=== PATIENT | female | born 1990 | race Caucasian/White ===

== ENCOUNTER → 2016-05-03 | Outpatient (CLI) | payer BC, OTHER ==
[~2016-05-03] MED LIST: IBUP-1427 PO; PRENTAB26 PO
[2016-05-03 15:02] LABS: URINE APPEARANCE CLEAR (CLEAR); URINE BILIRUBIN NEG (NEG); URINE COLOR DK YELLOW; URINE EPITHELIAL CELL AUTO >30 /lpf (0-5); URINE NITRITE NEG (NEG); URINE PH 5.5 (4.5-7.5); URINE SPECIFIC GRAVITY 1.028 (1.000-1.030); UROBILINOGEN NEG (NEG)
[2016-05-03 15:09] LABS: MANUAL MICROSCOPIC REQUIRED? NO; REVIEW REQ? NO
== END | disposition home or self-care (01) ==
LOC: C.LABSPEC 13:51
PROVIDERS: ATTEND Obstetrics & Gynecology
DX: Z34.83 Encounter for supervision of other normal pregnancy, third trimester (principal)

== ENCOUNTER → 2016-05-03 | Outpatient (CLI) | payer BC, OTHER ==
[2016-05-03 12:22] LABS: HEMATOCRIT 33.3 % (37-47)
[2016-05-03 13:55] LABS: GTGD 50 Grams
== END | disposition home or self-care (01) ==
LOC: C.LAB1850 10:17
PROVIDERS: ATTEND Obstetrics & Gynecology
DX: Z34.83 Encounter for supervision of other normal pregnancy, third trimester (principal)

== ENCOUNTER → 2016-07-04 | Outpatient (CLI) | payer BC | END | disposition home or self-care (01) | LOC: C.LABSPEC 13:26 | PROVIDERS: ATTEND Obstetrics & Gynecology | DX: Z34.83 Encounter for supervision of other normal pregnancy, third trimester (principal) ==

== ENCOUNTER 2016-08-02 11:47 | Outpatient (CLI) | payer BC | END 2016-08-02 13:22 | disposition home or self-care (01) | LOC: C.LD 11:47 → C.OPB 11:47 | PROVIDERS: ATTEND Obstetrics & Gynecology | DX: O26.893 Other specified pregnancy related conditions, third trimester (principal); O48.0 Post-term pregnancy; Z3A.41 41 weeks gestation of pregnancy ==

== ENCOUNTER 2016-08-04 09:27 | Inpatient (IN) | payer BC ==
[~2016-08-04] VITALS: Ht 172.7 cm; Wt 85.0 kg
[2016-08-04 15:51] VITALS: Ht 172.7 cm; Wt 85.0 kg
[2016-08-04 16:14] LABS: HEMATOCRIT 36.3 % (37-47); MEAN CELL VOLUME 92.8 fL (80-100); MEAN CORPUSCULAR HEMOGLOBIN 31.7 pg (25-34); MEAN CORPUSCULAR HGB CONC 34.2 g/dl (32-36); MEAN PLATELET VOLUME 9.9 fL (7.4-10.4); PLATELET COUNT 197 K/uL (130-400); RED BLOOD COUNT 3.91 M/uL (4.2-5.4); WHITE BLOOD COUNT 8.51 K/uL (4.8-10.8)
[2016-08-05] MEDS ORDERED: OXYTOCIN 30 UNITS/500ML NSS IV PRN ×2 (07:15→14:30)
[2016-08-05] MEDS: LACTATED RINGER'S 1000ML 500 ML IV PRN ×3 (07:43→13:26)
[2016-08-05] MEDS ORDERED: BUPIVACAINE 0.25% 30 ML VIAL ONE (08:17)
[2016-08-05] MEDS ORDERED: FENTANYL CITRATE INJ 50 MCG/1 ML 2 ML VIAL ONE (08:17)
[2016-08-05] MEDS ORDERED: FENTANYL 2MCG/ML ROPIV 1.25MG/ML 100ML BAG EPI ONE (08:17)
[2016-08-05] MEDS ORDERED: EpHEDrine SULFATE INJ 50 MG/ML AMP ONE (08:17)
[2016-08-05] MEDS ORDERED: LACTATED RINGER'S 1000ML 500 ML IV PRN (09:46)
[2016-08-05] MEDS ORDERED: NALOXONE HCL INJ 1 MG in SODIUM CHLORIDE 0.9% 1000ML 1,000 ML IV PRN (09:46)
[2016-08-05] MEDS ORDERED: NALBUPHINE HCL INJ 10 MG/ML AMP IV PRN (10:00)
[2016-08-05] MEDS ORDERED: NALOXONE HCL INJ 0.4 MG/1 ML VIAL/CARP IV PRN (10:00)
[2016-08-05] MEDS ORDERED: EpHEDrine SULFATE INJ 50 MG/ML AMP IV PRN (10:00)
[2016-08-05] MEDS ORDERED: FENTANYL 2MCG/ML ROPIV 1.25MG/ML 100ML BAG EPI PRN (10:00)
[2016-08-05] MEDS ORDERED: DiphenhydrAMINE HCL 50 MG/ML VIAL IV PRN (10:00)
[2016-08-05] MEDS ORDERED: HYDROCORTISONE ACETATE 25 MG SUPP PR PRN (14:30)
[2016-08-05] MEDS ORDERED: ACETAMINOPHEN/CODEINE 300/30MG TAB PO PRN ×2 (14:30)
[2016-08-05] MEDS ORDERED: OXYCODONE/ACETAMINOPHEN 5-325 TAB PO PRN (14:30)
[2016-08-05] MEDS ORDERED: SUPERCREAM 0.870 % 15GM JAR EXT PRN (14:30)
[2016-08-05] MEDS ORDERED: DIPHTHERIA/TETANUS/PERTUSSIS 0.5 ML SYR/VIAL IM. ONE (14:30)
[2016-08-05] MEDS ORDERED: LANOLIN OINT EXT PRN ×2 (14:30)
[2016-08-05] MEDS ORDERED: BENZOCAINE 20% AER SPR 82.5 GM CAN EXT PRN (14:30)
[2016-08-05] MEDS ORDERED: ACETAMINOPHEN 325 MG TAB PO PRN (14:30)
--- NOTE | 2016-08-05 15:53 | Anesthesia Procedure Note ---
Anesthesia Epidural Removal Nt Date & Time Aug 05, 2016 at 15:52 Vital Signs Pain Intensity: 0.0 Notes Mental Status: alert / awake / arousable, participated in evaluation Nausea / Vomiting: adequately controlled Pain: adequately controlled Airway Patency, RR, SpO2: stable & adequate BP & HR: stable & adequate Hydration State: stable & adequate Neuraxial Anesthesia: was administered, sensory block is resolving Anesthetic Complications: no major complications apparent, pt satisfied with anesthetic care Epidural: removed without complications, with tip intact
[2016-08-05 17:15] VITALS: BP 118/73; PULSE 74; TEMP 36.9; O2SAT 97
[2016-08-05] MEDS: IBUPROFEN 600 MG TAB PO PRN ×2 (17:48→22:45)
[2016-08-05 19:30] VITALS: BP 123/71; PULSE 62; TEMP 36.5
[2016-08-05] MEDS: DOCUSATE SODIUM 100 MG CAP PO SCH (20:33)
[2016-08-06 00:10] VITALS: BP 114/68; PULSE 54; TEMP 36.4; O2SAT 97
[2016-08-06] MEDS: IBUPROFEN 600 MG TAB PO PRN ×4 (02:59→17:00)
[2016-08-06 04:30] VITALS: BP 108/67; PULSE 62; TEMP 36.5
[2016-08-06 06:58] LABS: HEMATOCRIT 32.4 % (37-47)
[2016-08-06] MEDS ORDERED: PRENATAL VITAMIN TAB PO SCH (08:00)
--- NOTE | 2016-08-06 08:40 | Progress Note ---
Subjective Aug 06, 2016. Subjective conversation w/ patient, physical exam Ambulation: ambulating normally Voiding: no voiding problems Passing Gas: Yes Diet Tolerance: Regular Diet Lochia: Moderate Feeding Type: Bottle Feeding Pain: 2/10 improves with pain medication Comment: Patient was seen at the bedside. No acute event overnight. Review of Systems Constitutional: No fever Respiratory: No cough, No shortness of breath Cardiac: No chest pain, No edema Breast: No breast lump Abdomen: No nausea, No pain, No vomiting Female : No dysuria Denies headache Objective Vital Signs Date Time Temp Pulse Resp B/P Pulse Ox O2 Delivery O2 Flow Rate FiO2 08/06/16 04:30 36.5 62 20 108/67 Room Air 08/06/16 00:10 36.4 54 18 114/68 Room Air 08/06/16 00:10 97 Room Air 08/05/16 19:30 36.5 62 20 123/71 Room Air 08/05/16 17:15 36.9 74 16 118/73 97 Room Air Physical Exam General Appearance: WELL-APPEARING, WD/WN Respiratory/Chest: chest non-tender, lungs clear, normal breath sounds Cardiovascular: regular rate, rhythm Abdomen: normal bowel sounds, non tender, soft Fundus: Firm, Relation to Umbilicus (2cm beloe) Extremities: non-tender, no pedal edema, no calf tenderness Laboratory Results Last 24 Hours Test 08/06/16 06:20 Hemoglobin 10.8 g/dL Hematocrit 32.4 % Medications Current Inpatient Medications Medications (Trade) Dose Ordered Sig/Jhonatan Route Start Time Stop Time Status Last Admin Dose Admin Oxytocin (Pitocin IV) 30 units UD PRN IV 08/05/16 14:30 09/04/16 14:29 Benzocaine (Dermoplast Aero Spr) 1 appln PRN PRN EXT 08/05/16 14:30 09/04/16 14:29 Cocaine HCl (Supercream 0.870% Cr) BID PRN EXT 08/05/16 14:30 08/19/16 14:29 Hydrocortisone Acetate (Anusol Hc Supp) 25 mg BID PRN [place] 08/05/16 14:30 09/04/16 14:29 Lanolin (Lanolin Oint) PRN PRN EXT 08/05/16 14:30 09/04/16 14:29 Prenat Multivit/ [place]/Iron/Folic Ac ( Vitamin Tab) 1 tab DAILY PO 08/06/16 08:00 09/05/16 07:59 Ibuprofen (Motrin Tab) 600 mg Q4H PRN PO 08/05/16 14:30 09/04/16 14:29 08/06/16 02:59 600 MG Acetaminophen (Tylenol Tab) 650 mg Q6H PRN PO 08/05/16 14:30 09/04/16 14:29 Acetaminophen/ Codeine Phosphate (Tylenol w/ Codeine #3 Tab) 1 tab Q4H PRN PO 08/05/16 14:30 09/04/16 14:29 Acetaminophen/ Codeine Phosphate (Tylenol w/ Codeine #3 Tab) 2 tab Q4H PRN PO 08/05/16 14:30 09/04/16 14:29 Docusate Sodium (coLACE CAP) 100 mg BID PO 08/05/16 20:00 09/04/16 19:59 08/05/16 20:33 100 MG Assessment and Plan Post- Day#: 1 Continue Routine Care: A/P: This is a 25 y/o female, , s/p normal vaginal delivery. She is ambulating and clinically stable. Plan: - Vitals signs are reviewed and WNL (Tmax 36.9 ) - Last Hgb is 10.8 - Blood type A+, GBS neg, Rubella Immune - Routine care - Encourage ambulation, monitor and control pain with medication as needed , continue with regular diet as tolerated and monitor lochia - Stool softeners and sitz bath recommended
[2016-08-06] MEDS: DOCUSATE SODIUM 100 MG CAP PO SCH (08:46)
[2016-08-06 08:50] VITALS: BP 108/64; PULSE 62; TEMP 36.4; O2SAT 97
[2016-08-06 12:30] VITALS: BP 111/61; PULSE 58; TEMP 36.5; O2SAT 99
[2016-08-06 15:30] VITALS: BP 104/64; PULSE 44; TEMP 36.4
--- NOTE | 2016-08-06 16:35 | Discharge Instructions ---
Discharge Instructions Date of Service Aug 06, 2016. Admission Reason for Admission: Induction Discharge Discharge Diagnosis / Problem: s/p vaginal delivery Discharge Goals Goal(s): Routine recovery after delivery Medications Continue Dispensed Medications: supercream, dermaplast, tucks, lansinoh Activity Recommendations Activity Limitations: per Instructions/Follow-up section . Instructions / Follow-Up Instructions / Follow-Up ACTIVITY RECOMMENDATIONS: * Gradual return to full activity over the next 2-3 weeks. * No lifting - nothing heavier than baby over the next 2-3 weeks. * Do not engage in vigorous exercise, sexual activity or sports until cleared by your physician. * Do not drive or operate any motorized equipment until cleared by your physician. * You may shower/bathe daily. MEDICATIONS: For discomfort or pain, you may use Acetaminophen (Tylenol), Ibuprofen (Advil), or Naproxen (Aleve) following the package directions. For constipation you may use Colace following the package directions. BREAST CARE: If you are not breast feeding: * Wear a supportive bra 24 hours a day for one to two weeks. * Avoid stimulating your breasts and nipples as much as possible during the first few weeks after delivery. * When taking a shower, have the warm water hit your back, not breasts. * When your breasts feel full, apply ice packs. Usually three to four times a day helps ease the discomfort. * Take a mild pain medication (Tylenol / Motrin) when you are uncomfortable. If breast feeding: * Use breast milk to lubricate nipples. Lansinoh cream may be used for sore nipples. You do not need to remove cream prior to breast feeding. If using a different brand of cream, check the label for directions regarding removal of cream prior to nursing. * Wear a supportive bra. * If having problems with breasts or breast feeding, call a account consultant or your health care provider. EPISIOTOMY CARE: After delivery, if you have an episiotomy (stitches), the following steps will ease discomfort and aid healing. * For the first 24 hours after delivery, place ice packs next to your episiotomy to help reduce swelling. * After the first 24 hour-period, sitz baths, either portable or in the tub, are suggested. A shower with a shower arm sprayed over the episiotomy may be comforting. * Mónica care should be done after each voiding and bowel movement. Squirt warm water from a plastic bottle over the perineum (region of the body between the anus and urinary opening) and pat dry. * Use Dermoplast to ease discomfort. Shake container. [place] directly over the episiotomy. Place a Tucks on a clean sanitary pad next to your episiotomy. SPECIAL CARE INSTRUCTIONS: When you are discharged from the hospital, it is important for you to follow the instructions listed below: * During the first week at home, you should be able to care for yourself and your baby. In addition, the usual light household activities are encouraged. * Limit your activities to the way you feel. Do not try to clean the house or move furniture. Be sensible. * If you actively engage in sports and have done so up until the time of your delivery, you may resume these activities as soon as you feel able. This may take up to one month or even longer. Use good judgment. * Continue to take your vitamins for at least six weeks after the of your baby. * Your diet need not be limited unless you were on a special diet before your delivery. Breast-feeding mothers need around 2500 calories per day and at least 64-80 ounces of fluid per day (8 to 10 glasses). * You should eat foods from the four major food groups. Crash diets or fad diets are to be avoided. Eating lean meats, fresh fruits and vegetables, low-fat dairy products, high fiber foods and a regular exercise program, will help you get back to your pre- weight without putting your health at risk. * Constipation is sometimes a problem after delivery. Take a mild laxative as needed. If breast feeding, Milk of Magnesia is acceptable to use. You may use a suppository or Fleets enema if no episiotomy. * A daily shower or tub bath is suggested. Be sure to thoroughly and gently dry the perineum. * A bloody vaginal discharge will usually continue until around four weeks post . A small amount of bleeding may continue for as long as six weeks. Vaginal discharge changes from the bright red bleeding after delivery to pink then brownish and finally yellowish-pink before becoming white and disappearing. * Bleeding may increase with activity. Your first period may come in 4-8 weeks. If you are breast feeding, your period may be delayed even longer. * [place] (sex) can begin whenever both you and your partner feel comfortable and do not have any form of genital infection. It is recommended that you wait at least six weeks for internal and external healing to occur. If you have questions, please talk to your health care practitioner. A condom should be used to prevent infection and . * Foreplay, gentle intercourse and lubrication is very important the first several times to prevent pain. A water-based lubricant such as K-Y jelly or Astroglide may be used. * If you have RH negative blood and your baby is RH positive, you will receive RHOGAM by injection prior to discharge. The nurse will give you a card to keep with you that has the date and place that you received RHOGAM after delivery. * During your care, you had a Rubella screen done to check for the presence of rubella antibodies in your blood. If your test was negative, you will receive a Rubella vaccine prior to discharge. This vaccine may cause a fever, soreness at the injection site and flu-like symptoms. If these symptoms persist, notify your health care practitioner. is not advised for one month after a Rubella vaccine. * Verbalizes understanding of car seat law as reviewed with patient nursing. * Car Seat hand-out given and reviewed with patient by nursing. * Shaken baby information reviewed with patient by nursing. Call you doctor if: * Heavy bleeding (saturating several pads an hour) or passing clots the size of your fist. * A fever >101 degrees F (38.3 degrees C) on two occasions four hours apart and /or chills. * Unusual pain in the pelvic or vaginal areas. * "Baby Blues" lasting longer than two weeks. If you have any questions or concerns, call your health care practitioner at . FOLLOW UP VISIT: * Please call the office at to schedule a 6 week examination. It is important you keep this appointment. It is important for you to make arrangements for either yearly or twice yearly check-ups thereafter. Current Hospital Diet Patient's current hospital diet: Regular OB Diet Discharge Diet Recommended Diet: Regular Diet Pending Studies Studies pending at discharge: no Medical Emergencies . Who to Call and When: Medical Emergencies: If at any time you feel your situation is an emergency, please call 911 immediately. . Non-Emergent Contact Non-Emergency issues call your: Wedding Transportation Driver . . "Provider Documentation" section prepared by Ria Agrawal. . VTE Core Measure Inpt VTE Proph given/why not?: Treatment not indicated
[2016-08-06 17:17] VITALS: BP_DIAS 64; PULSE 44; TEMP 36.4
--- NOTE | 2016-08-10 07:51 | DELIVERY SUMMARY ---
DATE OF OPERATION: 08/05/2016 The patient was admitted for a post-dates induction. She underwent a Chong bulb for cervical ripening. The following morning I took over the care of the patient. The Chong bulb was removed. Pitocin was started. The patient underwent an epidural anesthetic. She progressed to complete complete +1 station and pushed effectively to deliver a viable female infant in JL presentation. The nose and mouth were bulb suctioned. The rest of the infant was then delivered without difficulty. The infant was placed on the maternal abdomen for drying and attention. The cord was clamped and cut and cord blood and segment were obtained. Placenta was delivered spontaneously intact with a 3-vessel cord. Cervix, sulci, rectum and perineum were intact. Small bilateral labial lacs repaired with 3-0 and 4-0 Vicryl. Three small likely condyloma were excised with scissors and the skin was reapproximated with 4-0 Vicryl. The patient gave verbal permission for removal of these lesions. Hemostasis was obtained with dilute Pitocin and fundal massage. Apgars were 9 and 10. Anesthesia was epidural. Mother and baby doing well at the end of the delivery. Estimated blood loss 350 mL. I attest to the content of the Intraoperative Record and any orders documented therein. Any exceptio ns are noted below.
== END 2016-08-06 17:17 | disposition home or self-care (01) | DRG 774 ==
LOC: C.LD 14:45 → C.OBG 08-05 16:49
PROVIDERS: ADMIT Obstetrics & Gynecology; ATTEND Obstetrics & Gynecology
PROC: 0HQ9XZZ Repair Perineum Skin, External Approach (ICD-10-PCS; principal; 2016-08-05)
PROC: 0U7C7ZZ Dilation of Cervix, Via Natural or Artificial Opening (ICD-10-PCS; principal; 2016-08-05)
PROC: 0UBGXZZ Excision of Vagina, External Approach (ICD-10-PCS; principal; 2016-08-05)
PROC: 3E033VJ Introduction of Other Hormone into Peripheral Vein, Percutaneous Approach (ICD-10-PCS; principal; 2016-08-05)
PROC: 10E0XZZ Delivery of Products of Conception, External Approach (ICD-10-PCS; principal; 2016-08-05)
DX: O48.0 Post-term pregnancy (principal); O98.32 Other infections with a predominantly sexual mode of transmission complicating childbirth; A63.0 Anogenital (venereal) warts; Z37.0 Single live birth; O99.334 Smoking (tobacco) complicating childbirth; F17.210 Nicotine dependence, cigarettes, uncomplicated; O70.0 First degree perineal laceration during delivery; O99.62 Diseases of the digestive system complicating childbirth; K21.9 Gastro-esophageal reflux disease without esophagitis; Z79.899 Other long term (current) drug therapy; Z3A.41 41 weeks gestation of pregnancy

== ENCOUNTER → 2016-09-22 | Outpatient (CLI) | payer BC ==
[~2016-09-22] MED LIST changes: -IBUP-1427 PO
== END | disposition home or self-care (01) ==
LOC: C.PAPS 16:09
PROVIDERS: ATTEND Obstetrics & Gynecology
DX: Z12.4 Encounter for screening for malignant neoplasm of cervix (principal)

== ENCOUNTER 2017-05-04 15:41 | Emergency (ER) | payer BC ==
[~2017-05-04] VITALS: Ht 172.7 cm; Wt 73.0 kg
[2017-05-04 15:43] VITALS: TEMP 36.5; Ht 172.7 cm; Wt 73.0 kg
[2017-05-04] MEDS ORDERED: SODIUM CHLORIDE 0.9% 1000ML 1,000 ML IV STA (19:05)
[2017-05-04 19:39] VITALS: O2SAT 99
[2017-05-04 19:43] LABS: BASO % 0.4 %; BASO ABS # 0.02 K/uL (0-0.2); EOS % 1.8 %; HEMOGLOBIN 14.3 g/dL (12.0-16.0); IG# 0.01 K/uL (0.00-0.02); LYMPH % 18.3 %; LYMPH ABS # 1.03 K/uL (1.2-3.4); MEAN CELL VOLUME 90.9 fL (80-100); MEAN CORPUSCULAR HEMOGLOBIN 31.7 pg (25-34); MEAN CORPUSCULAR HGB CONC 34.9 g/dl (32-36); MEAN PLATELET VOLUME 10.2 fL (7.4-10.4); MONO % 4.3 %; MONO ABS # 0.24 K/uL (0.11-0.59); NEUT ABS # 4.23 K/uL (1.4-6.5); PLATELET COUNT 211 K/uL (130-400); RED CELL DISTRIBUTION WIDTH CV 12.4 % (11.5-14.5); WHITE BLOOD COUNT 5.63 K/uL (4.8-10.8)
[2017-05-04 20:00] LABS: ALBUMIN 3.5 gm/dl (3.4-5.0); ALT/SGPT 31 U/L (12-78); BLOOD UREA NITROGEN 10 mg/dl (7-18); CALCIUM 8.9 mg/dl (8.5-10.1); CARBON DIOXIDE 23 mmol/L (21-32); CREATININE 0.73 mg/dl (0.60-1.20); GLUCOSE 87 mg/dl (70-99); POTASSIUM 3.9 mmol/L (3.5-5.1); SODIUM 138 mmol/L (136-145)
[2017-05-04 20:03] LABS: PTT PATIENT 25.1 SECONDS (21.0-31.0)
--- NOTE | 2017-05-04 20:07 | DIAGNOSTIC IMAGING REPORT ---
SINGLE VIEW CHEST CLINICAL HISTORY: Generalized weakness. FINDINGS: An AP, portable, upright chest radiograph is compared to study dated 01/14/2015. The cardiomediastinal silhouette is unremarkable. The lungs and pleural spaces are clear. No pneumothorax is seen. The bony thorax is grossly intact. IMPRESSION: No active disease in the chest. Electronically signed by: Raad Lyn M.D. 05/04/2017 8:06 PM Dictated Date/Time: 05/04/2017 8:06 PM
[2017-05-04 20:11] LABS: ALKALINE PHOSPHATASE 57 U/L (45-117); AST/SGOT 18 U/L (15-37); CKMB 0.8 ng/ml (0.5-3.6); TOTAL PROTEIN 7.3 gm/dl (6.4-8.2)
[2017-05-04 20:55] VITALS: BP 125/80; PULSE 117; O2SAT 98
--- NOTE | 2017-05-04 23:15 | EMERGENCY ROOM VISIT NOTE ---
History Report prepared by Reggie: Louie Hutchins Under the Supervision of: Dr. Ric Ward M.D. First contact with patient: 19:03 Chief Complaint: IRREGULAR HEARTBEAT Stated Complaint: HEART OUT OF RHYTHEM,TIGHT Nursing Triage Summary: pt to the eD with c/o feeling like her heart is beating abnormally since last night History of Present Illness The patient is a 27 year old female who presents to the Emergency Room with complaints of an irregular heart rhythm that she started to experience two days prior to arrival. The patient states that she first felt the irregular beat when she laid down to sleep at night. She notes feeling slightly nauseous when her symptoms onset. She denies LOC, headache, fevers, chills, diaphoresis, visual changes, neck pain, chest pain, breathing difficulties, nausea, vomiting , abdominal pain, back pain, melena, hematochezia, urinary symptoms, numbness, weakness, lymphadenopathy, rash, or other complaints. 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 A total of ten systems were reviewed and were otherwise negative. Past Medical & Surgical Medical Problems: (1) Prolonged , antepartum (2) Supervision of normal intrauterine in multigravida in third trimester Family History FH: thyroid disease Social History Smoking Status: Current Every Day Smoker Current/Historical Medications No Active Prescriptions or Reported Meds Allergies Coded Allergies: Amoxicillin (Verified Allergy, Unknown, RASH, 05/04/17) Clavulanic Acid (Verified Allergy, Unknown, RASH, 05/04/17) Physical Exam Vital Signs Date Time Temp Pulse Resp B/P (MAP) Pulse Ox O2 Delivery O2 Flow Rate FiO2 05/04/17 20:55 117 16 125/80 98 05/04/17 19:42 66 16 123/78 97 Room Air 05/04/17 19:39 78 05/04/17 19:39 99 Room Air 05/04/17 15:43 36.5 75 16 127/85 100 Room Air Physical Exam GENERAL: Awake, alert, well-appearing, in no distress HENT: Normocephalic, atraumatic. Oropharynx unremarkable. EYES: Normal conjunctiva. Sclera non-icteric. NECK: Supple. No nuchal rigidity. FROM. No JVD. No thyromegaly or tenderness. RESPIRATORY: Clear to auscultation. CARDIAC: Regular rate, normal rhythm. Extremities warm and well perfused. Pulses equal. ABDOMEN: Soft, non-distended. No tenderness to palpation. No rebound or guarding. No masses. RECTAL: Deferred. MUSCULOSKELETAL: Chest examination reveals no tenderness. The back is symmetrical on inspection without obvious abnormality. There is no CVA tenderness to palpation. No joint edema. LOWER EXTREMITIES: Calves are equal size bilaterally and non-tender. No edema. No discoloration. NEURO: Normal sensorium. No sensory or motor deficits noted. SKIN: No rash or jaundice noted. Medical Decision & Procedures ER Provider Diagnostic Interpretation: Radiology results as stated below per my review and radiologist interpretation: SINGLE VIEW CHEST CLINICAL HISTORY: Generalized weakness. FINDINGS: An AP, portable, upright chest radiograph is compared to study dated 01/14/2015. The cardiomediastinal silhouette is unremarkable. The lungs and pleural spaces are clear. No pneumothorax is seen. The bony thorax is grossly intact. IMPRESSION: No active disease in the chest. Electronically signed by: Raad Lyn M.D. 05/04/2017 8:06 PM Dictated Date/Time: 05/04/2017 8:06 PM Laboratory Results 05/04/17 19:25 Red Blood Count 4.51, Mean Corpuscular Volume 90.9, Mean Corpuscular Hemoglobin 31.7, Mean Corpuscular Hemoglobin Concent 34.9, Mean Platelet Volume 10.2, Neutrophils (%) (Auto) 75.0, Lymphocytes (%) (Auto) 18.3, Monocytes (%) (Auto) 4.3, Eosinophils (%) (Auto) 1.8, Basophils (%) (Auto) 0.4, Neutrophils # (Auto) 4.23, Lymphocytes # (Auto) 1.03, Monocytes # (Auto) 0.24, Eosinophils # (Auto) 0.10, Basophils # (Auto) 0.02 05/04/17 19:25 Test 05/04/17 19:25 05/04/17 19:30 White Blood Count 5.63 K/uL (4.8-10.8) Red Blood Count 4.51 M/uL (4.2-5.4) Hemoglobin 14.3 g/dL (12.0-16.0) Hematocrit 41.0 % (37-47) Mean Corpuscular Volume 90.9 fL (80-100) Mean Corpuscular Hemoglobin 31.7 pg (25-34) Mean Corpuscular Hemoglobin Concent 34.9 g/dl (32-36) Platelet Count 211 K/uL (130-400) Mean Platelet Volume 10.2 fL (7.4-10.4) Neutrophils (%) (Auto) 75.0 % Lymphocytes (%) (Auto) 18.3 % Monocytes (%) (Auto) 4.3 % Eosinophils (%) (Auto) 1.8 % Basophils (%) (Auto) 0.4 % Neutrophils # (Auto) 4.23 K/uL (1.4-6.5) Lymphocytes # (Auto) 1.03 K/uL (1.2-3.4) Monocytes # (Auto) 0.24 K/uL (0.11-0.59) Eosinophils # (Auto) 0.10 K/uL (0-0.5) Basophils # (Auto) 0.02 K/uL (0-0.2) RDW Standard Deviation 41.0 fL (36.4-46.3) RDW Coefficient of Variation 12.4 % (11.5-14.5) Immature Granulocyte % (Auto) 0.2 % Immature Granulocyte # (Auto) 0.01 K/uL (0.00-0.02) Prothrombin Time 10.0 SECONDS (9.0-12.0) Prothromb Time International Ratio 1.0 (0.9-1.1) Activated Partial Thromboplast Time 25.1 SECONDS (21.0-31.0) Partial Thromboplastin Ratio 1.0 Anion Gap 10.0 mmol/L (3-11) Est Creatinine Clear Calc Drug Dose 118.8 ml/min Estimated GFR () 132.7 Estimated GFR (Non- 114.5 BUN/Creatinine Ratio 13.0 (10-20) Calcium Level 8.9 mg/dl (8.5-10.1) Magnesium Level 1.8 mg/dl (1.8-2.4) Total Bilirubin 0.6 mg/dl (0.2-1) Direct Bilirubin 0.1 mg/dl (0-0.2) Aspartate Amino Transf (AST/SGOT) 18 U/L (15-37) Alanine Aminotransferase (ALT/SGPT) 31 U/L (12-78) Alkaline Phosphatase 57 U/L (45-117) Total Creatine Kinase 93 U/L (26-192) Creatine Kinase MB 0.8 ng/ml (0.5-3.6) Creatine Kinase MB Ratio 0.9 (0-3.0) Troponin I < 0.015 ng/ml (0-0.045) Total Protein 7.3 gm/dl (6.4-8.2) Albumin 3.5 gm/dl (3.4-5.0) Thyroid Stimulating Hormone (TSH) 1.590 uIu/ml (0.300-4.500) Lyme Disease IgG Antibody NEG (NEG) Lyme Disease IgM Antibody NEG (NEG) Urine Color YELLOW Urine Appearance CLEAR (CLEAR) Urine pH 5.5 (4.5-7.5) Urine Specific [place] 1.013 (1.000-1.030) Urine Protein NEG (NEG) Urine Glucose (UA) NEG (NEG) Urine Ketones NEG (NEG) Urine Occult Blood NEG (NEG) Urine Nitrite NEG (NEG) Urine Bilirubin NEG (NEG) Urine Urobilinogen NEG (NEG) Urine Leukocyte Esterase SMALL (NEG) Urine WBC (Auto) 10-30 /hpf (0-5) Urine RBC (Auto) 0-4 /hpf (0-4) Urine Hyaline Casts (Auto) 1-5 /lpf (0-5) Urine Epithelial Cells (Auto) >30 /lpf (0-5) Urine Bacteria (Auto) 2+ (NEG) Laboratory results reviewed by me Medications Administered Medications (Trade) Dose Ordered Sig/Jhonatan Route Start Time Stop Time Status Last Admin Dose Admin Sodium Chloride 1,000 ml @ 125 mls/hr Q8H STAT IV 05/04/17 19:05 05/04/17 22:05 DC 05/04/17 19:42 125 MLS/HR ECG Indication: palpitations (irregular HR feeling) Rate (beats per minute): 73 Rhythm: sinus with SA Findings: PVC, no acute ischemic change Change: Patient's electrocardiogram interpreted by me. ED Course 1904: Ordered Sodium Chloride 1000 mL @ 125 mL/hr IV. 1918: The patient was evaluated in room C1. A complete history and physical exam was performed. 2039: I reevaluated the patient. Discussed results and discharge instructions: She verbalized understanding and agreement. The patient is ready for discharge. Medical Decision Triage Nursing notes reviewed and agree them. The patient's history was concerning for palpitations. Differential diagnosis: Etiologies such as electrolyte abnormality, cardiac dysrhythmia, thyroid dysfunction, pulmonary embolism, infection, gastrointestinal, as well as others were entertained. Physical examination: Benign as above. ER treatment provided: Cardiac monitoring. IV hydration with normal saline On reassessment the patient felt better. Diagnostic interpretation by me: The electrocardiogram was negative for pathologic change. Frequent PVCs noted. The patient had frequent PVCs noted on cardiac monitoring. No bigeminy or sustained runs noted. No coupling. The labs revealed a normal CBC and chemistry panel. Thyroid function unremarkable. Troponin negative. Electrolytes normal. Imaging studies: Chest x-ray as above. The patient has frequent PVCs and is feeling the PVCs. This correlates with cardiac monitoring and her symptoms. Conservative management was discussed and the patient feels comfortable. Cardiology referral was recommended. I gave my usual and customary discussion regarding this issue.By the evaluation outlined above emergent etiologies such as electrolyte abnormality, cardiac dysrhythmia, thyroid dysfunction, pulmonary embolism, infection, as well as others were deemed relatively unlikely. The patient was informed about the findings as listed above. All questions were answered and she was pleased with the treatment. Return instructions were outlined and the patient was discharged in stable condition. Outpatient prescription management: None Referral: The patient was referred back to cardiology and her primary care physician for follow-up for a recheck of the current condition. Blood Pressure Screening Patient's blood pressure: Normal blood pressure Impression Primary Impression: Palpitation Additional Impression: PVCs (premature ventricular contractions) Scribe Attestation The scribe's documentation has been prepared under my direction and personally reviewed by me in its entirety. I confirm that the note above accurately reflects all work, treatment, procedures, and medical decision making performed by me. Departure Information Dispostion Home / Self-Care Prescriptions No Active Prescriptions or Reported Meds Referrals Dulce Monroy, C.R.N.P. (PCP) Forms HOME CARE DOCUMENTATION FORM, IMPORTANT VISIT INFORMATION Patient Instructions My [facility] Additional Instructions PALPITATIONS(RAPID OR SKIPPING HEARTBEAT) INSTRUCTIONS: Rest and drink plenty of fluids as tolerated. Continue current medications. Resume normal activities once your symptoms resolve. Eat a heart healthy, low fat, low cholesterol diet. Return to the ER immediately for passing out, chest pain, abdominal pain, vomiting, fevers, difficulty breathing, worsening of your condition, or as needed. Follow up with your primary physician next week for a recheck of your current condition. Call [facility] cardiology tomorrow for follow-up appointment. The phone numbers [phone]. If you have any difficulty obtaining an appointment for this Emergency Room visit and the frequent premature beats call back to the emergency department at [phone] for assistance with our gearcase assembler. Problem Qualifiers
== END 2017-05-04 20:55 | disposition home or self-care (01) ==
LOC: C.EDB 15:43 → C.EDC 20:55
DX: I49.3 Ventricular premature depolarization (principal); E07.9 Disorder of thyroid, unspecified; F17.210 Nicotine dependence, cigarettes, uncomplicated